=== PATIENT | female | born 1950 | race Caucasian/White ===

== ENCOUNTER 2016-09-01 07:10 | Inpatient (IN) | payer OTHER ==
[2016-08-14 12:53] VITALS: BMI 27.0
--- NOTE | 2016-08-14 13:28 | PAT Medication Instructions ---
Service Date Aug 14, 2016. Current Home Medication List Cyanocobalamin (Vitamin B-12), 1,000 MCG PO DAILY Ibuprofen (Motrin), 600 MG PO Q6H PRN for Pain Levothyroxine Sodium (Levothyroxine Sodium), 1 TAB PO QAM Pregabalin (Lyrica), 150 MG PO TID Tramadol (Ultram), 50 MG PO Q8H PRN for Pain [Dr. Kathy Estrella], 1 PKT PO QAM Medication Instructions For Your Scheduled Surgery Dr. Kathy Estrella 1 PKT PO QAM (take as directed by surgeon) - Hold the following medications 10 days prior to surgery per surgeon instructions: Ibuprofen (Motrin), 600 MG PO Q6H PRN for Pain - Hold the following medications the morning of surgery: Cyanocobalamin (Vitamin B-12), 1,000 MCG PO DAILY - Take the following medications the morning of surgery with a sip of water: Tramadol (Ultram), 50 MG PO Q8H PRN for Pain (can take up to four hours prior to surgery if needed) Pregabalin (Lyrica), 150 MG PO TID Levothyroxine Sodium (Levothyroxine Sodium), 1 TAB PO QAM - Take the following medications as scheduled the night before surgery: Tramadol (Ultram), 50 MG PO Q8H PRN for Pain Pregabalin (Lyrica), 150 MG PO TID If you have any questions please call us at [phone] or [phone] ( Rachel) or [phone]
--- NOTE | 2016-08-14 14:13 | DIAGNOSTIC IMAGING REPORT ---
CHEST 2 VIEWS ROUTINE CLINICAL HISTORY: PAT preoperative evaluation COMPARISON STUDY: No previous studies for comparison. FINDINGS: The bones soft tissues and hemidiaphragms are normal. The cardiomediastinal silhouette is normal. The lungs are clear. The pulmonary vasculature is normal. IMPRESSION: Negative chest. Electronically signed by: Victorino Correia M.D. 08/14/2016 2:11 PM Dictated Date/Time: 08/14/2016 2:11 PM
[2016-08-14 14:32] LABS: BASO % 0.4 %; BASO ABS # 0.02 K/uL (0-0.2); COMPLETE YES; HEMATOCRIT 37.7 % (37-47); IG% 0.2 %; LYMPH % 41.2 %; LYMPH ABS # 2.04 K/uL (1.2-3.4); MEAN CORPUSCULAR HGB CONC 34.5 g/dl (32-36); MEAN PLATELET VOLUME 9.9 fL (7.4-10.4); MONO % 8.3 %; NEUT % 48.9 %; PLATELET COUNT 253 K/uL (130-400); RED BLOOD COUNT 4.19 M/uL (4.2-5.4); WHITE BLOOD COUNT 4.95 K/uL (4.8-10.8)
[2016-08-14 14:36] LABS: URINE APPEARANCE CLEAR (CLEAR); URINE BILIRUBIN NEG (NEG); URINE COLOR YELLOW; URINE NITRITE NEG (NEG); URINE SPECIFIC GRAVITY 1.016 (1.000-1.030); UROBILINOGEN NEG (NEG); ZZUR CULT IF INDIC CLEAN CATCH NO
[2016-08-14 14:40] LABS: INR 0.9 (0.9-1.1); PROTHROMBIN TIME (PATIENT) 10.1 SECONDS (9.0-12.0)
[2016-08-14 14:43] LABS: MANUAL MICROSCOPIC REQUIRED? NO; REVIEW REQ? NO
[2016-08-14 15:19] LABS: BUN/CREATININE RATIO 25.9 (10-20); CALCIUM 8.9 mg/dl (8.5-10.1); CREATININE 0.71 mg/dl (0.60-1.20); POTASSIUM 4.2 mmol/L (3.5-5.1)
--- NOTE | 2016-08-29 08:36 | HISTORY & PHYSICAL EXAMINATION ---
DATE OF ADMISSION: 09/01/2016 CHIEF COMPLAINT: Right hip pain. HISTORY OF PRESENT ILLNESS: Ms. Kinsey is a 65-year-old female with a 1 year history of right hip pain. The patient rates her pain a 10/10. She has pain with her daily activities. She has limited standing and walking tolerance. Pain is worse with weightbearing. The patient has had anti-inflammatories, tramadol and therapy in the past without relief. She has failed conservative treatment and is scheduled for right hip replacement. PAST MEDICAL HISTORY: Hypercholesterolemia, COPD and thyroid disease. She denies heart disease, diabetes or DVT. PAST SURGICAL HISTORY: Varicose vein ligation, appendectomy, cataract extraction, radial keratotomy, torn retina repair. SOCIAL HISTORY: The patient drinks one drink per week. She quit smoking in 2014 after 40 years. She lives in a 2-story home. She is and retired. FAMILY HISTORY: Negative for DVT. MEDICATIONS: Lyrica 150 mg 3 times daily, levothyroxine 75 mg daily, tramadol 100 mg 3 times a day, ibuprofen 600 mg 3 times a day. ALLERGIES: None. REVIEW OF SYSTEMS: See HPI. Ten other systems reviewed, all negative. PHYSICAL EXAMINATION: VITAL SIGNS: Height 5 foot 0 inches, weight 140 pounds, BMI 27. GENERAL: This is a well-developed, well-nourished female who is alert and oriented x3. Mood and affect are appropriate. HEENT: Normocephalic, atraumatic. Mucous membranes are moist and intact. LUNGS: Neck supple without lymphadenopathy. HEART: Regular rate and rhythm without murmurs, rubs or gallops. LUNGS: Clear to auscultation without wheezes or rhonchi. ABDOMEN: Soft and nontender. Bowel sounds are equal and active. EXTREMITIES: No ecchymosis, redness or warmth. Log roll of the hip reproduces pain in the groin. She is neurovascularly intact with +5/5 strength. She walks with an antalgic gait. X-RAY EXAMINATION: AP and lateral views show joint space narrowing and osteophyte formation. IMPRESSION: Degenerative joint disease, right hip. PLAN: The patient will be admitted for a right total hip arthroplasty. We will plan on aspirin for DVT prophylaxis. The patient will have [facility] Nurses.
[2016-09-01] VITALS (8 sets, daily range): BP systolic 90–132; BP diastolic 50–89; PULSE 70–95; TEMP 36.3–36.9; O2SAT 94–100; Ht 152.4 cm; Wt 64.0 kg
[~2016-09-01] VITALS: Ht 152.4 cm; Wt 64.0 kg
[2016-09-01] MEDS: TRANEXAMIC ACID INJ 1,000 MG in SODIUM CHLORIDE 0.9% 100ML 100 ML IV SCH ×2 (06:30→10:11)
[~2016-09-01 07:10] MED LIST: ACETAMINOPHEN 500 MG TAB PO SCH; CEFAZOLIN 2000 MG/60 ML D5W 60 ML IV SCH; CYAN10005 PO; CeleBREX 200 MG CAP PO SCH; DEXAMETHASONE 4 MG TAB PO SCH; FAMOTIDINE 20 MG TAB PO SCH; GABAPENTIN 300 MG CAP PO SCH; IBUP-1450 PO; LACTATED RINGER'S 1000ML IV SCH; LEVO75TA5 PO; METOCLOPRAMIDE HCL 10 MG TAB PO SCH; OXYCODONE HCL 10 MG TABCR (OXYCONTIN) PO SCH; POLYMYXIN B SULFATE 100,000 UNITS in NSS 100ML IR SCH; PREG1CAP70 PO; ROPIVACAINE 5MG/ML 30 ML 150 MG, BUPIVACAINE/EPINEPHR 0.5% MPF 30 ML, KETOROLAC TROMETH... INFIL SCH; TRAM-10 PO; VANCOMYCIN INJ 400 MG in NSS 100ML IR SCH; [UNRECOGNIZED DRUG - REMARK] PO
[2016-09-01] MEDS ORDERED: BUPIVACAINE 0.5 % 5 MG/1 ML PF 10ML VIAL ONE (07:14)
[2016-09-01] MEDS ORDERED: MIDAZOLAM HCL 1 MG/ML 2ML VIAL ONE ×2 (08:34→11:22)
[2016-09-01] MEDS ORDERED: FENTANYL CITRATE INJ 50 MCG/1 ML 2 ML VIAL ONE (08:35)
--- NOTE | 2016-09-01 09:46 | History & Physical Bridge Note ---
H&P Re-Evaluation Bridge Note: I have examined the patient, reviewed the History & Physical and in the interval since the performance of the History & Physical I have noted the following changes of clinical significance: No changes noted
[2016-09-01] MEDS ORDERED: LACTATED RINGER'S 1000ML 1,000 ML IV PRN (10:08)
[2016-09-01] MEDS ORDERED: FENTANYL CITRATE INJ 50 MCG/1 ML 2 ML VIAL IV PRN (10:15)
[2016-09-01] MEDS ORDERED: ONDANSETRON INJ 2 MG/ML 2 ML VIAL IV PRN ×2 (10:15→12:30)
[2016-09-01] MEDS ORDERED: ORTHO JOINT ANESTHETIC ONE (10:29)
[2016-09-01] MEDS ORDERED: BACITRACIN 50000 UNIT VIAL ONE (10:29)
[2016-09-01] MEDS ORDERED: POVIDONE-IODINE OP SOLN 30 ML BTL ONE (10:29)
[2016-09-01] MEDS ORDERED: LIDOCAINE HCL 2% 2 ML VIAL (20MG/ML) ONE (11:16)
[2016-09-01] MEDS ORDERED: PROPOFOL IV EMULSION 10 MG/ML 20 ML VIAL IV ONE ×2 (11:16→12:16)
[2016-09-01] MEDS ORDERED: EpHEDrine SULFATE INJ 50 MG/ML AMP ONE (11:49)
[2016-09-01] MEDS ORDERED: SODIUM CHLORIDE 0.9% INJ 10 ML VIAL ONE (11:49)
--- NOTE | 2016-09-01 12:18 | [facility] Post Operative Brief Note ---
Immediate Operative Summary Operative Date Sep 01, 2016. Pre-Operative Diagnosis Right Hip Degenerative Joint Disease Post-Operative Diagnosis Right Hip Degenerative Joint Disease Procedure(s) Performed Right Total Hip Arthroplasty, Direct Anterior Approach Surgeon Dr. Anthony Chavez Council[place] Surgeon(s) Latonia Forrest PA-C Estimated Blood Loss 100 Findings DJD Specimens A: Right Femoral Head Complication(s) None Disposition Recovery Room / PACU
[2016-09-01] MEDS ORDERED: MoRPHine SULFATE 2 MG/ML CARP IV PRN (12:30)
[2016-09-01] MEDS ORDERED: ALUMINUM/MAGNESIUM/SIMETH (MAALOX MAX) 30 ML UDC PO PRN (12:30)
[2016-09-01] MEDS ORDERED: TRAMADOL HCL 50 MG TAB PO PRN (12:30)
[2016-09-01] MEDS ORDERED: SOD PHOSPHATE/SOD BIPHOSPHATE ENEMA 132 ML BTL PR PRN (12:30)
[2016-09-01] MEDS ORDERED: MAGNESIUM HYDROXIDE SUSP 30 ML UDC PO PRN (12:30)
[2016-09-01] MEDS ORDERED: ZOLPIDEM TARTRATE 5 MG TAB PO PRN (12:30)
[2016-09-01] MEDS ORDERED: BISACODYL 10 MG SUPP PR PRN (12:30)
[2016-09-01] MEDS ORDERED: METOCLOPRAMIDE HCL INJ 5 MG/ML 2 ML VIAL IV PRN (12:30)
[2016-09-01] MEDS ORDERED: DiphenhydrAMINE HCL 50 MG/ML VIAL IV PRN (12:30)
--- NOTE | 2016-09-01 12:52 | Anesthesiology Progress Note ---
Anesthesia Post Op Note Date & Time Sep 01, 2016 at 12:52 Vital Signs Pain Intensity: 0 Vital Signs Past 12 Hours Date Time Temp Pulse Resp B/P Pulse Ox O2 Delivery O2 Flow Rate FiO2 09/01/16 12:40 69 18 113/69 99 Room Air 09/01/16 12:30 36.3 77 18 120/73 98 Mask 5 09/01/16 08:02 36.8 70 18 132/89 100 Room Air Notes Mental Status: alert / awake / arousable, participated in evaluation Pt Amnestic to Procedure: No (recall as expected) Nausea / Vomiting: adequately controlled Pain: adequately controlled Airway Patency, RR, SpO2: stable & adequate BP & HR: stable & adequate Hydration State: stable & adequate Neuraxial Anesthesia: was administered, sensory block is resolving Anesthetic Complications: no major complications apparent Pt doing well.
--- NOTE | 2016-09-01 12:58 | DIAGNOSTIC IMAGING REPORT ---
INTRAOPERATIVE FLUOROSCOPIC IMAGE OF THE RIGHT HIP CLINICAL HISTORY: Right hip arthroplasty. COMPARISON STUDY: No previous studies for comparison. Fluoroscopy time: 12 seconds. FINDINGS: Single intraoperative fluoroscopic image demonstrates anatomic alignment of the total right hip arthroplasty. Acetabular screw is partially imaged. There is no periprosthetic fracture or unexpected radiopaque foreign body. IMPRESSION: Expected findings during total right hip arthroplasty. Electronically signed by: Kalyan Anderson M.D. 09/01/2016 12:55 PM Dictated Date/Time: 09/01/2016 12:55 PM
--- NOTE | 2016-09-01 13:09 | DIAGNOSTIC IMAGING REPORT ---
AP PELVIS AND RIGHT HIP 2 VIEWS CLINICAL HISTORY: Postop hip arthroplasty COMPARISON STUDY: No previous studies for comparison. FINDINGS: There are postsurgical changes of a total right hip arthroplasty. No acute fractures or dislocations are visualized. There is air in the soft tissues consistent with recent surgery. There is an overlying surgical drain. IMPRESSION: Postsurgical changes of a total right hip arthroplasty. Electronically signed by: Sy Hong M.D. 09/01/2016 1:06 PM Dictated Date/Time: 09/01/2016 1:06 PM
--- NOTE | 2016-09-01 15:11 | OPERATIVE REPORT ---
DATE OF OPERATION: 09/01/2016 PREOPERATIVE DIAGNOSIS: Degenerative arthritis, right hip. POSTOPERATIVE DIAGNOSIS: Same. PROCEDURE: Right total hip replacement. SURGEON: Dr. Anthony Chavez. PIPELINES SUPERINTENDENT: MOE Neal ANESTHESIA: Spinal. BLOOD LOSS: 100 mL REPLACEMENT FLUIDS: 1800 mL of crystalloid. DRAINS: Hemovacs x1. CULTURES: None. COMPLICATIONS: None. COMPONENTS USED: [employer] hip system: Acetabulum size 50, femur size 4 high offset, femoral head 0, neck length 32 mm. NOTE: Latonia Forrest was present and assisted throughout due to the complicated nature of this case. She helped with preparation and set up, first assisted throughout and personally closed the fascial, subcutaneous and skin layers and applied the postoperative dressing. DESCRIPTION: Following satisfactory spinal, the patient was supine, the right leg was placed in the traction device and the left leg in the well leg irby, right leg was prepared with ChloraPrep and draped sterilely. Following a surgical time-out, an anterior approach was performed in the interval between the sartorius and tensor muscles. Circumflex femoral vessels were identified and ligated. An anterior capsulotomy was performed exposing the arthritic femoral neck and head. The femoral neck and head were trimmed and removed. The acetabular self-retraining retractor was placed. Acetabular reaming was completed with fluoroscopic guidance and using fluoroscopy, the 50 shell was impacted into an anatomic position, secured with a dome screw. Local anesthetic was placed and after irrigation, the poly liner was placed. The femur was placed into position of external rotation, extension and adduction. Femoral canal was prepared up to the size 4. A trial reduction with a 0 neck length head showed anabaptist of leg lengths and offsets using fluoroscopic landmarks and good fit and fill of the proximal canal. The trial component was removed after dislocation, final implant was placed and after irrigation, the hip was reduced with fluoroscopy showing similar findings. A Betadine soak was performed for 5 minutes. The capsule was then closed with 1 Vicryl. A drain was placed. The fascia was closed with 1 Vicryl. The subcutaneous tissues with #1 and 2-0 Vicryl. Skin with a running subcuticular stitch of 3-0 V-Loc. Dermabond and a dry dressing were applied. The patient was returned to her bed in stable condition. I attest to the content of the Intraoperative Record and any orders documented therein. Any exceptio ns are noted below.
[2016-09-01] MEDS: OXYCODONE HCL IR 5 MG TAB (IMMEDIATE RELEASE) PO PRN (15:53)
[2016-09-01] MEDS: PREGABALIN 150 MG CAP PO SCH ×2 (15:56→20:40)
[2016-09-01] MEDS: D5W AND 1/2NSS + 20MEQ KCL 1,000 ML IV SCH (16:00)
[2016-09-01] MEDS: KETOROLAC TROMETHAMINE 30 MG/ML VIAL IV. SCH ×2 (18:44→23:38)
[2016-09-01] MEDS: CEFAZOLIN IV 1,000 MG in DEXTROSE 5% 50ML 50 ML IV SCH (18:49)
[2016-09-01] MEDS: ACETAMINOPHEN 500 MG TAB PO SCH (20:40)
[2016-09-01] MEDS: ASPIRIN 81 MG ECTAB PO SCH (20:40)
[2016-09-01] MEDS ORDERED: SENNA 8.6 MG TAB PO SCH (21:00)
[2016-09-02] MEDS: CEFAZOLIN IV 1,000 MG in DEXTROSE 5% 50ML 50 ML IV SCH (01:32)
[2016-09-02] MEDS: D5W AND 1/2NSS + 20MEQ KCL 1,000 ML IV SCH ×2 (01:32→10:34)
[2016-09-02 04:50] VITALS: BP 116/77; PULSE 71; TEMP 37; O2SAT 97
[2016-09-02] MEDS: KETOROLAC TROMETHAMINE 30 MG/ML VIAL IV. SCH ×2 (05:28→11:40)
[2016-09-02] MEDS: ACETAMINOPHEN 500 MG TAB PO SCH ×2 (05:29→13:21)
[2016-09-02] MEDS ORDERED: LEVOTHYROXINE 75 MCG TAB PO SCH (06:00)
[2016-09-02 06:24] LABS: BASO % 0.1 %; BASO ABS # 0.01 K/uL (0-0.2); COMPLETE YES; IG% 0.3 %; LYMPH % 10.7 %; MEAN CELL VOLUME 91.4 fL (80-100); MEAN CORPUSCULAR HGB CONC 33.9 g/dl (32-36); MEAN PLATELET VOLUME 9.5 fL (7.4-10.4); MONO % 8.8 %; NEUT % 80.1 %; PLATELET COUNT 251 K/uL (130-400); RED BLOOD COUNT 3.61 M/uL (4.2-5.4); WHITE BLOOD COUNT 14.89 K/uL (4.8-10.8)
[2016-09-02 07:02] LABS: CREATININE 0.81 mg/dl (0.60-1.20)
[2016-09-02 07:03] LABS: BUN/CREATININE RATIO 20.4 (10-20); CALCIUM 8.6 mg/dl (8.5-10.1); POTASSIUM 4.7 mmol/L (3.5-5.1)
[2016-09-02 07:38] VITALS: BP 124/79; PULSE 76; TEMP 36.8; O2SAT 98
[2016-09-02] MEDS: ASPIRIN 81 MG ECTAB PO SCH (08:49)
[2016-09-02] MEDS: PREGABALIN 150 MG CAP PO SCH ×2 (08:49→13:20)
[2016-09-02] MEDS: OXYCODONE HCL IR 5 MG TAB (IMMEDIATE RELEASE) PO PRN (08:54)
--- NOTE | 2016-09-02 08:58 | Anesthesiology Progress Note ---
Anesthesia Post Op Note Date & Time Sep 02, 2016 at 08:57 Vital Signs Pain Intensity: 7.0 Vital Signs Past 12 Hours Date Time Temp Pulse Resp B/P Pulse Ox O2 Delivery O2 Flow Rate FiO2 09/02/16 07:45 Room Air 09/02/16 07:38 36.8 76 16 124/79 98 Room Air 09/02/16 04:50 37.0 71 16 116/77 97 Room Air 09/01/16 23:42 Room Air 09/01/16 23:34 36.9 72 16 90/50 96 Room Air Notes Mental Status: alert / awake / arousable, participated in evaluation Pt Amnestic to Procedure: Yes Nausea / Vomiting: adequately controlled Pain: adequately controlled Airway Patency, RR, SpO2: stable & adequate BP & HR: stable & adequate Hydration State: stable & adequate Neuraxial Anesthesia: sensory block resolved Anesthetic Complications: no major complications apparent
[2016-09-02] MEDS ORDERED: MULTIVITAMIN TAB PO SCH (09:00)
[2016-09-02] MEDS ORDERED: PANTOprazole SOD 40 MG TAB PO SCH (09:00)
[2016-09-02] MEDS ORDERED: CYANOCOBALAMIN 500 MCG TAB (VIT B-12) PO SCH (09:00)
[2016-09-02 11:06] VITALS: BP 120/76; PULSE 73; TEMP 36.8; O2SAT 99
--- NOTE | 2016-09-02 13:01 | DISCHARGE SUMMARY ---
DATE OF DISCHARGE: 09/02/2016. DISCHARGE DIAGNOSIS: Degenerative joint disease, right hip. SECONDARY DIAGNOSIS: None. CONSULTS: None. COMPLICATIONS: None. PROCEDURE: The patient underwent a direct anterior total hip arthroplasty with Dr. Chavez on 09/01/2016. BRIEF HISTORY: Please see previously dictated history and physical. HOSPITAL SUMMARY: The patient was admitted on the above day for the above procedure. Procedure went without complication. Postop day 1, the patient was feeling well without complaints. She denied chest pain or shortness of breath. Vital signs were stable. She was afebrile. Dressing was clean, dry and intact. She was neurovascularly intact. Calves were soft and nontender. Hemovac drained 200 and 110 mL per shift. Hemoglobin was 11.2. The patient began physical therapy per protocol. She was discharged to home later that day in stable condition. For further review please see the chart. Lab, x-ray data and discharge instructions per chart.
[2016-09-02 15:11] VITALS: BP 98/64; PULSE 86; TEMP 36.8; O2SAT 95
--- NOTE | 2016-09-02 16:29 | Discharge Instructions ---
Discharge Instructions Date of Service Sep 02, 2016. Admission Reason for Admission: Right Hip Degenerative Arthritis Discharge Discharge Diagnosis / Problem: sp right ALON Discharge Goals Goal(s): Decrease discomfort, Improve function, Increase independence Activity Recommendations Activity Limitations: per Instructions/Follow-up section . Instructions / Follow-Up Instructions / Follow-Up ACTIVITY RECOMMENDATIONS: SELF CARE INSTRUCTIONS AFTER TOTAL HIP REPLACEMENT : Direct Anterior Approach Until the incision and soft tissues around your hip have healed, there is a possibility that the hip prosthesis could dislocate. A. Hip flexion ( Up & Down out of chair or steps ) may be difficult. This is normal. B. Numbness in front of the thigh is also normal for a few weeks. C. Use hand rails when walking on stairs. D. Wear low heeled shoes with non-slip soles. E. Be sure that your floors are free of things that could trip you - throw rugs , electrical cords, small objects. Avoid wet and waxed floors, especially with crutches and canes. F. Try to walk several times a day with rest periods between. G. Continue with all the exercises taught to you in the hospital. Again, make walking a part of your daily routine. SPECIAL CARE INSTRUCTIONS: VERY IMPORTANT TO READ AND REVIEW A. You may still be at risk for phlebitis and blood clots. 1. Wear surgical stockings (LYNDA hose) for 2 weeks after surgery to improve circulation and reduce swelling. 2. Take Aspirin 81mg twice daily for 4 weeks or as directed by your doctor. This is your blood thinner. 3. High risk patients may be prescribed a stronger blood thinner if necessary. 4. If you are on Coumadin normally, your family doctor/stitch bonding machine operator should monitor your blood work. Expect a phone call the day of or the day after bloodwork is drawn to adjust your dosage. B. You must take antibiotics before having dental work, bladder, bowel and other surgery. Your doctor will provide you with a permanent card to carry describing precautions. C. Call [facility] [place] if you have a fever, redness or swelling around the incision, cloudy drainage from incision, or sudden increase in pain in your hip, not relieved by your regular pain medication. D. Please call the office at if you have any concerns or questions about your operation or recovery. * YOU MAY SHOWER, NO TUB BATHS UNTIL CLEARED BY YOUR DOCTOR. - Keep an extra close eye on the top portion of your incision. Be sure to keep clean & dry. * WEAR LYNDA HOSE 20 HOURS PER DAY FOR 2 WEEKS. * YOU MAY PROGRESS FROM A WALKER, TO A CANE, TO INDEPENDENT AT YOUR OWN PACE. * MOST PATIENTS WILL HAVE HOME NURSING FOR THERAPY. IF YOU DECIDE TO DO OUTPATIENT PHYSICAL THERAPY, PLEASE SCHEDULE THIS 3 TIMES PER WEEK. * DERMABOND Prineo- This is a mesh tape dressing that is covered with glue. It should remain in place until the incision is properly healed, usually 10-14 days. This dressing is designed to naturally slough off. You may trim the excess mesh tape as it peels off. Incision may be briefly wet in a shower. Dry immediately by blotting with a clean, dry towel. Do not bath or swim until instructed by your doctor. Do not scratch, rub, or pick at the dressing. Do not apply any topical ointments or lotions until dressing is completely removed and/or instructed by your doctor. There may be a small piece of suture material at one end of your incision. Do not pull or trim this. If it is bothersome or catching on clothing, you may cover it with a band-aid. FOLLOW UP VISIT: If appointment is not already scheduled: Please call [facility] [place] to make a follow-up appointment for 2 weeks after your surgery at . Current Hospital Diet Patient's current hospital diet: Regular Diet Discharge Diet Recommended Diet: Regular Diet Procedures Procedures Performed: Right Total Hip Arthroplasty, Direct Anterior Approach Pending Studies Studies pending at discharge: no Medical Emergencies . Who to Call and When: Medical Emergencies: If at any time you feel your situation is an emergency, please call 911 immediately. . Non-Emergent Contact Non-Emergency issues call your: Surgeon . "Provider Documentation" section prepared by Latonia Forrest. . VTE Core Measure Inpt VTE Proph given/why not?: Other Anticoagulation, T.E.D. Adriana, SCD's [place] Drug Monitoring Program Search Results: patient reviewed within database
[2016-09-02] MEDS ORDERED: CLB200 PO (16:32)
[2016-09-02] MEDS ORDERED: ASPEC81 PO (16:32)
[2016-09-02] MEDS ORDERED: ACET-1138 PO (16:32)
[2016-09-02] MEDS ORDERED: SNK PO (16:32)
[2016-09-02] MEDS ORDERED: RXC5 PO (16:32)
[2016-09-02] MEDS ORDERED: ONDA8TAB6 PO (16:32)
[2016-09-02 16:51] VITALS: BP 98/64; PULSE 86; TEMP 36.8; O2SAT 95
[2016-09-03] MEDS ORDERED: CeleBREX 200 MG CAP PO SCH (21:00)
== END 2016-09-02 17:45 | disposition home health service (06) | DRG 470 ==
LOC: ENRESERVTM → ENRESERVDT → C.ACU 07:10 → C.3E 09:00
PROVIDERS: ADMIT Orthopaedic Surgery; ATTEND Orthopaedic Surgery
PROC: 0SR90JZ Replacement of Right Hip Joint with Synthetic Substitute, Open Approach (ICD-10-PCS; principal; 2016-09-01 10:15)
DX: M16.11 Unilateral primary osteoarthritis, right hip (principal); E78.00 Pure hypercholesterolemia, unspecified; J44.9 Chronic obstructive pulmonary disease, unspecified; Z87.891 Personal history of nicotine dependence; E07.9 Disorder of thyroid, unspecified